=== PATIENT | male | born 1985 | race African-American/Black ===

== ENCOUNTER 2019-11-17 12:23 | Emergency (ER) | payer MEDICAID ==
[~2019-11-17] VITALS: Ht 190.5 cm; Wt 145.0 kg
[2019-11-17 12:28] VITALS: BP 138/88
[2019-11-17] MEDS ORDERED: IBUPROFEN 600MG TABLET PO ONE (14:45)
== END 2019-11-17 16:50 | disposition home or self-care (01) ==
LOC: ER 12:45
DX: M25.561 Pain in right knee (principal); K08.89 Other specified disorders of teeth and supporting structures
CPT/HCPCS: 29505; 73562; 73630; 99284; L1830

== ENCOUNTER 2020-10-24 09:13 | Emergency (ER) | payer MEDICAID, OTHER ==
[~2020-10-24] VITALS: Ht 180.3 cm; Wt 105.0 kg
[2020-10-24 09:17] VITALS: BP 153/89
[2020-10-24] MEDS ORDERED: NAPR-681 PO (09:56)
[2020-10-24] MEDS ORDERED: BENZ100C86 PO (09:56)
== END 2020-10-24 10:11 | disposition home or self-care (01) ==
LOC: ER 09:13
DX: M25.562 Pain in left knee (principal)
CPT/HCPCS: 99283

== ENCOUNTER 2020-10-27 22:12 | Emergency (ER) | payer OTHER ==
[~2020-10-27] VITALS: Ht 190.5 cm; Wt 136.0 kg
[~2020-10-27 22:12] MED LIST: BENZ100C86 PO; NAPR-681 PO
[2020-10-27 22:43] VITALS: BP 136/70
[2020-10-27] MEDS ORDERED: KETOROLAC 30MG/ML VIAL IM ONE (22:45)
[2020-10-27] MEDS ORDERED: IBUPROFEN 600MG TABLET PO ONE (23:30)
== END 2020-10-27 23:36 | disposition home or self-care (01) ==
LOC: ER 22:12
DX: M79.605 Pain in left leg (principal); M79.604 Pain in right leg; Z83.3 Family history of diabetes mellitus
CPT/HCPCS: 99283; J1885

== ENCOUNTER 2020-11-05 14:59 | Emergency (ER) | payer OTHER ==
[~2020-11-05] VITALS: Ht 190.5 cm; Wt 136.0 kg
[2020-11-05] MEDS ORDERED: KETOROLAC 60MG/2ML VIAL IM ONE (15:15)
[2020-11-05] MEDS ORDERED: IBUPROFEN 800MG TABLET PO ONE (15:30)
[2020-11-05] MEDS ORDERED: IBUP-2030 MT (15:52)
[2020-11-05 16:53] VITALS: BP 124/74
== END 2020-11-05 16:56 | disposition home or self-care (01) ==
LOC: ER 14:59
DX: G89.29 Other chronic pain (principal); M79.605 Pain in left leg; M79.604 Pain in right leg; R03.0 Elevated blood-pressure reading, without diagnosis of hypertension
CPT/HCPCS: 72100; 93970; 99284

== ENCOUNTER 2020-11-23 13:23 | Emergency (ER) | payer OTHER ==
[~2020-11-23] VITALS: Ht 190.5 cm; Wt 100.0 kg
[~2020-11-23 13:23] MED LIST changes: +IBUP-2030 MT
[2020-11-23] MEDS ORDERED: KETOROLAC 30MG/ML VIAL IM ONE (13:45)
[2020-11-23 14:11] VITALS: BP 153/79
[2020-11-23] MEDS ORDERED: TOPUD MT (14:37)
== END 2020-11-23 14:58 | disposition home or self-care (01) ==
LOC: ER 13:23
DX: M79.662 Pain in left lower leg (principal); M79.661 Pain in right lower leg; J45.909 Unspecified asthma, uncomplicated
CPT/HCPCS: 73620; 96372; 99283; J1885

== ENCOUNTER 2020-11-23 16:58 | Emergency (ER) | payer OTHER ==
[~2020-11-23] VITALS: Ht 190.5 cm; Wt 132.0 kg
[~2020-11-23 16:58] MED LIST changes: +TOPUD MT
[2020-11-23 17:12] VITALS: BP 164/97
[2020-11-23] MEDS ORDERED: ACETAMINOPHEN 325MG TABLET PO ONE (18:30)
== END 2020-11-23 19:00 | disposition left against medical advice (07) ==
LOC: ER 16:58
DX: M79.661 Pain in right lower leg (principal); M79.662 Pain in left lower leg; J45.909 Unspecified asthma, uncomplicated
CPT/HCPCS: 99281

== ENCOUNTER 2020-11-25 16:52 | Emergency (ER) | payer OTHER ==
[~2020-11-25] VITALS: Ht 188 cm; Wt 136.0 kg
[2020-11-25] MEDS: ACETAMINOPHEN 325MG TABLET PO ONE (18:48)
[2020-11-25] MEDS ORDERED: OXYC-662 MT (19:17)
[2020-11-25 19:30] VITALS: BP 126/88
== END 2020-11-25 19:43 | disposition home or self-care (01) ==
LOC: ER 16:52
DX: M25.571 Pain in right ankle and joints of right foot (principal); J45.909 Unspecified asthma, uncomplicated
CPT/HCPCS: 73610; 99283

== ENCOUNTER 2020-12-15 12:24 | Emergency (ER) | payer OTHER ==
[~2020-12-15] VITALS: Ht 188 cm; Wt 109.0 kg
[~2020-12-15 12:24] MED LIST changes: +OXYC-662 MT
[2020-12-15] MEDS ORDERED: KETOROLAC 60MG/2ML VIAL IM ONE (13:00)
[2020-12-15 13:01] VITALS: BP 131/51
[2020-12-15] MEDS ORDERED: IBUP-2029 MT (13:23)
== END 2020-12-15 13:40 | disposition home or self-care (01) ==
LOC: ER 12:24
DX: M10.071 Idiopathic gout, right ankle and foot (principal); J45.909 Unspecified asthma, uncomplicated; Z79.899 Other long term (current) drug therapy
CPT/HCPCS: 96372; 99283; J1885

== ENCOUNTER 2020-12-29 06:30 | Emergency (ER) | payer OTHER ==
[~2020-12-29] VITALS: Ht 177.8 cm; Wt 102.0 kg
[~2020-12-29 06:30] MED LIST changes: +IBUP-2029 MT
[2020-12-29 07:30] VITALS: BP 140/98
[2020-12-29] MEDS ORDERED: LORAZEPAM 1MG TABLET PO ONE (07:30)
[2020-12-29] MEDS ORDERED: PARO10TA87 MT (08:12)
== END 2020-12-29 08:55 | disposition home or self-care (01) ==
LOC: ER 06:30
DX: F41.0 Panic disorder [episodic paroxysmal anxiety] (principal); F17.290 Nicotine dependence, other tobacco product, uncomplicated; R03.0 Elevated blood-pressure reading, without diagnosis of hypertension; M62.831 Muscle spasm of calf; E11.9 Type 2 diabetes mellitus without complications; F12.90 Cannabis use, unspecified, uncomplicated; Z79.899 Other long term (current) drug therapy
CPT/HCPCS: 82962; 99283

== ENCOUNTER 2021-01-11 14:44 | Emergency (ER) | payer OTHER ==
[~2021-01-11] VITALS: Ht 180.3 cm; Wt 145.0 kg
[~2021-01-11 14:44] MED LIST changes: +PARO10TA87 MT
[2021-01-11 14:52] VITALS: BP 124/82
[2021-01-11] MEDS ORDERED: CYCL10TA7 MT (17:07)
== END 2021-01-11 16:30 | disposition left against medical advice (07) ==
LOC: ER 14:44
DX: Z53.21 Procedure and treatment not carried out due to patient leaving prior to being seen by health care provider (principal)

== ENCOUNTER 2021-01-11 16:24 | Emergency (ER) | payer OTHER ==
[~2021-01-11] VITALS: Ht 190.5 cm; Wt 141.0 kg
[2021-01-11 16:30] VITALS: BP 122/78
[2021-01-11] MEDS ORDERED: CYCL10TA7 MT (17:07)
[2021-01-11] MEDS ORDERED: IBUPROFEN 200MG TABLET PO ONE (17:15)
== END 2021-01-11 18:55 | disposition home or self-care (01) ==
LOC: ER 16:24
DX: M62.838 Other muscle spasm (principal); E11.9 Type 2 diabetes mellitus without complications
CPT/HCPCS: 99283

== ENCOUNTER 2021-01-23 11:47 | Emergency (ER) | payer OTHER ==
[~2021-01-23] VITALS: Ht 185.4 cm; Wt 116.0 kg
[~2021-01-23 11:47] MED LIST changes: +CYCL10TA7 MT
[2021-01-23 11:48] VITALS: BP 154/93
== END 2021-01-23 15:21 | disposition home or self-care (01) ==
LOC: ER 11:47
DX: M79.18 Myalgia, other site (principal)
CPT/HCPCS: 99283